=== PATIENT | male | born 1960 | race African-American/Black ===

== ENCOUNTER 2018-07-27 12:30 | Inpatient (IN) | payer MEDICARE, MEDICAID ==
[~2018-07-27] VITALS: Ht 180.3 cm; Wt 84.4 kg
[2018-07-27 14:47] LABS: CHLORIDE 99 mEq/L (98-107)
[2018-07-27] MEDS ORDERED: CEFTRIAXONE 1 G PREMIX 50 ML IV ONE (16:00)
[2018-07-27] MEDS ORDERED: AZITHROMYCIN 500 MG in DEXT 5% WATER 250 ML IV ONE (16:00)
[2018-07-27] MEDS ORDERED: ASPIRIN 325MG TABLET PO ONE (16:00)
[2018-07-27 17:01] LABS: BASOPHILS % 0.5 % (0.0-2.0); EOSINOPHILS % 0.6 % (0.0-5.0); HEMATOCRIT. 45.5 % (42.0-52.0); HEMOGLOBIN. 14.9 g/dL (14.0-18.0); LYMPHOCYTES % 37.1 % (20.0-50.0); MEAN CORPUSCULAR HEMOGLOBIN 31.2 pg (28.0-32.0); MEAN CORPUSCULAR VOLUME 95.4 fL (80.0-94.0); MEAN PLATELET VOLUME 10.7 fl (7.4-10.4); NEUTROPHILS % 51.8 % (40.0-76.0); PLATELET 155 x1000/uL (130-400); RED BLOOD CELL COUNT 4.77 mill/uL (4.7-6.1); RED CELL DISTRIBUTION WIDTH 13.8 % (11.6-14.6)
[2018-07-27 17:07] LABS: INR 1.3; PROTHROMBIN TIME 13.5 sec (9.1-11.1)
[2018-07-27] MEDS ORDERED: ASPIRIN 325MG TABLET GT ONE (18:00)
[2018-07-27 21:50] VITALS: BP 148/113
[2018-07-27 22:15] VITALS: BP 148/113
[2018-07-27] MEDS ORDERED: DEXTROSE 50% WATER 50ML SYRINGE IV PRN (22:30)
[2018-07-27] MEDS ORDERED: DULO20CA17 GT (23:49)
[2018-07-27] MEDS ORDERED: HYDR25TA GT (23:49)
[2018-07-27] MEDS ORDERED: IPRA3AMP31 IH (23:59)
[2018-07-27] MEDS ORDERED: CHOL100036 GT (23:59)
[2018-07-27] MEDS ORDERED: METO-539 GT (23:59)
[2018-07-27] MEDS ORDERED: HYDR-4134 GT (23:59)
[2018-07-27] MEDS ORDERED: LEVE500T78 GT (23:59)
[2018-07-27] MEDS ORDERED: OMEP20CA10 GT (23:59)
[2018-07-27] MEDS ORDERED: RISP0.5T19 GT (23:59)
[2018-07-27] MEDS ORDERED: LISI10TA5 GT (23:59)
[2018-07-28] VITALS: BP 147/85
[2018-07-28] MEDS ORDERED: IPRATROPIUM/ALBUTEROL 0.5-3(2.5)MG/3ML NEB HHN SCH
[2018-07-28 00:02] LABS: CHLORIDE 101 mEq/L (98-107)
[2018-07-28 00:07] LABS: BASOPHILS % 0.5 % (0.0-2.0); EOSINOPHILS % 0.8 % (0.0-5.0); HEMATOCRIT. 41.1 % (42.0-52.0); HEMOGLOBIN. 13.6 g/dL (14.0-18.0); LYMPHOCYTES % 46.6 % (20.0-50.0); MEAN CORPUSCULAR HEMOGLOBIN 30.7 pg (28.0-32.0); MEAN CORPUSCULAR VOLUME 92.7 fL (80.0-94.0); MEAN PLATELET VOLUME 10.4 fl (7.4-10.4); MONOCYTES % 10.1 % (2.0-8.0); PLATELET 160 x1000/uL (130-400); RED BLOOD CELL COUNT 4.43 mill/uL (4.7-6.1); RED CELL DISTRIBUTION WIDTH 13.9 % (11.6-14.6)
[2018-07-28 00:10] LABS: CREATINE KINASE 220 IU/L (39-308)
[2018-07-28 00:13] LABS: CREATINE KINASE MB FRACTION < 1.0 ng/mL (0.5-3.6)
[2018-07-28] MEDS: BLOOD SUGAR DIAGNOSTIC STRIP TEST SCH ×5 (00:47→23:22)
[2018-07-28 04:00] VITALS: BP 114/73
[2018-07-28] MEDS: INSULIN LISPRO 100 UNITS/ML SUBCUT SCH ×5 (06:00→23:22)
[2018-07-28 07:56] LABS: LDL CHOLESTEROL 69 mg/dL (5-100)
[2018-07-28 07:58] LABS: CREATINE KINASE 182 IU/L (39-308)
[2018-07-28 07:59] LABS: HDL CHOLESTEROL 35 mg/dL (40-59)
[2018-07-28 08:00] VITALS: BP 115/75
[2018-07-28 08:00] LABS: CREATINE KINASE MB FRACTION < 1.0 ng/mL (0.5-3.6)
[2018-07-28] MEDS ORDERED: INSULIN LISPRO 100 UNITS/ML SUBCUT SCH (08:20)
[2018-07-28] MEDS: ENOXAPARIN 40MG/0.4ML SYR SUBCUT SCH (08:25)
[2018-07-28 09:28] LABS: BG CARBOXYHEMOGLOBIN 0.6 % (0.5-1.5); BG DEOXYHEMOGLOBIN 4.4 % (0.0-5.0); BG FRACTION INSPIRED OXYGEN 28; BG HCO3 ACT 34.7 mmol/L (22.0-26.0); BG METHEMOGLOBIN 0.4 % (0.0-1.5); BG OXYGEN SATURATION 95.6 % (92.0-98.5); BG OXYHEMOGLOBIN 94.6 % (94.0-97.0); BG PCO2 52.4 mmHg (35.0-45.0); BG PH 7.439 (7.350-7.450); BG PO2 80.7 mmHg (75.0-100.0); BG SAMPLE SITE RIGHT RADIAL; BG TOTAL HEMOGLOBIN 12.8 g/dL (12.0-18.0); BG VENT MODE NASAL CANNULA
[2018-07-28] MEDS: LANSOPRAZOLE 15MG DR CAPSULE GT SCH (10:00)
[2018-07-28] MEDS: RISPERIDONE 0.5MG TABLET GT SCH ×2 (10:57→20:52)
[2018-07-28] MEDS: CHOLECALCIFEROL (D3) 1000 UNIT TABLET PO SCH (10:57)
[2018-07-28] MEDS: DULOXETINE HCL 20MG DR CAPSULE PO SCH (10:57)
[2018-07-28] MEDS: POTASSIUM CHLORIDE 20MEQ/PACKET GT SCH (10:57)
[2018-07-28] MEDS: LEVETIRACETAM 500MG TABLET PO SCH ×2 (10:58→20:51)
[2018-07-28] MEDS: LISINOPRIL 10MG TABLET PO SCH (10:58)
[2018-07-28] MEDS: METOPROLOL TARTRATE 25MG TABLET PO SCH ×2 (10:58→20:52)
[2018-07-28] MEDS: HYDROCHLOROTHIAZIDE 25MG TABLET GT SCH (10:58)
[2018-07-28 12:00] VITALS: BP 118/69
[2018-07-28] MEDS: IPRATROPIUM/ALBUTEROL 0.5-3(2.5)MG/3ML NEB NEB SCH ×3 (12:25→19:45)
[2018-07-28 16:00] VITALS: BP 118/76
[2018-07-28 16:47] LABS: CREATINE KINASE 154 IU/L (39-308)
[2018-07-28 16:48] LABS: CREATINE KINASE MB FRACTION < 1.0 ng/mL (0.5-3.6)
[2018-07-28 17:03] LABS: HEPATITIS B SURFACE ANTIGEN NEGATIVE
[2018-07-28 18:18] LABS: HEPATITIS A AB IGM NEGATIVE (NEGATIVE)
[2018-07-28 19:25] LABS: CLARITY URINE CLOUDY (CLEAR); COLOR URINE DARK YELLOW (YELLOW); KETONES URINE NEGATIVE (NEGATIVE); LEUKOCYTE ESTERASE URINE NEGATIVE (NEGATIVE); NITRITE URINE NEGATIVE (NEGATIVE); OCCULT BLOOD URINE NEGATIVE (NEGATIVE); PH URINE 7.5 (4.5-8.0); PROTEIN URINE NEGATIVE (NEGATIVE); SPECIFIC GRAVITY URINE 1.019 (1.005-1.030)
[2018-07-28 20:00] VITALS: BP 137/86
[2018-07-28] MEDS ORDERED: MONTELUKAST SODIUM 10MG TABLET GT SCH (21:00)
[2018-07-28] MEDS ORDERED: ATORVASTATIN CALCIUM 10MG TABLET PO SCH (21:00)
[2018-07-29] VITALS: BP 120/85
[2018-07-29] MEDS: IPRATROPIUM/ALBUTEROL 0.5-3(2.5)MG/3ML NEB NEB SCH ×5 (00:58→14:57)
[2018-07-29 04:00] VITALS: BP 122/86
[2018-07-29] MEDS: BLOOD SUGAR DIAGNOSTIC STRIP TEST SCH ×3 (06:00→17:06)
[2018-07-29] MEDS: INSULIN LISPRO 100 UNITS/ML SUBCUT SCH ×3 (06:25→17:06)
[2018-07-29 08:00] VITALS: BP 138/73
[2018-07-29] MEDS: HYDROCHLOROTHIAZIDE 25MG TABLET GT SCH (09:20)
[2018-07-29] MEDS: LISINOPRIL 10MG TABLET PO SCH (09:20)
[2018-07-29] MEDS: POTASSIUM CHLORIDE 20MEQ/PACKET GT SCH (09:20)
[2018-07-29] MEDS: LEVETIRACETAM 500MG TABLET PO SCH (09:20)
[2018-07-29] MEDS: CHOLECALCIFEROL (D3) 1000 UNIT TABLET PO SCH (09:20)
[2018-07-29] MEDS: ENOXAPARIN 40MG/0.4ML SYR SUBCUT SCH (09:20)
[2018-07-29] MEDS: DULOXETINE HCL 20MG DR CAPSULE PO SCH (09:21)
[2018-07-29] MEDS: LANSOPRAZOLE 15MG DR CAPSULE GT SCH (09:21)
[2018-07-29] MEDS: METOPROLOL TARTRATE 25MG TABLET PO SCH (09:21)
[2018-07-29] MEDS: RISPERIDONE 0.5MG TABLET GT SCH (09:21)
[2018-07-29 11:05] LABS: BASOPHILS % 0.9 % (0.0-2.0); EOSINOPHILS % 0.8 % (0.0-5.0); HEMATOCRIT. 38.6 % (42.0-52.0); MEAN CORPUSCULAR HEMOGLOBIN 31.3 pg (28.0-32.0); MEAN CORPUSCULAR VOLUME 93.3 fL (80.0-94.0); MEAN PLATELET VOLUME 11.1 fl (7.4-10.4); NEUTROPHILS % 44.3 % (40.0-76.0); PLATELET 141 x1000/uL (130-400); RED BLOOD CELL COUNT 4.14 mill/uL (4.7-6.1); RED CELL DISTRIBUTION WIDTH 13.8 % (11.6-14.6)
[2018-07-29 12:00] VITALS: BP 133/75
[2018-07-29 12:04] LABS: CHLORIDE 104 mEq/L (98-107)
[2018-07-29 13:46] LABS: BG BASE EXCESS 7.5 mmol/L (-2.0-2.0); BG CARBOXYHEMOGLOBIN 0.4 % (0.5-1.5); BG DEOXYHEMOGLOBIN 3.6 % (0.0-5.0); BG FRACTION INSPIRED OXYGEN 28; BG HCO3 ACT 32.8 mmol/L (22.0-26.0); BG METHEMOGLOBIN 0.3 % (0.0-1.5); BG OXYGEN SATURATION 96.4 % (92.0-98.5); BG OXYHEMOGLOBIN 95.7 % (94.0-97.0); BG PCO2 49.1 mmHg (35.0-45.0); BG PH 7.442 (7.350-7.450); BG PO2 88.6 mmHg (75.0-100.0); BG SAMPLE SITE LEFT RADIAL; BG TOTAL HEMOGLOBIN 12.2 g/dL (12.0-18.0); BG VENT MODE NASAL CANNULA
[2018-07-29 15:57] VITALS: BP 133/75
[2018-07-29 16:00] VITALS: BP 130/89
== END 2018-07-29 18:48 | DRG 194 ==
LOC: ER 12:30 → EDBD 12:30 → 8WST 16:06 → EDBEDREQ 16:10 → ENRESERV 20:16 → 8WST 22:25
PROVIDERS: ADMIT Internal Medicine Geriatric Medicine; ATTEND Internal Medicine Geriatric Medicine
DX: J18.1 Lobar pneumonia, unspecified organism (principal); G81.91 Hemiplegia, unspecified affecting right dominant side; E44.0 Moderate protein-calorie malnutrition; R07.89 Other chest pain; E87.6 Hypokalemia; E11.9 Type 2 diabetes mellitus without complications; I10 Essential (primary) hypertension; Z68.25 Body mass index [BMI] 25.0-25.9, adult; E78.00 Pure hypercholesterolemia, unspecified; G40.909 Epilepsy, unspecified, not intractable, without status epilepticus; I51.7 Cardiomegaly; R74.0 Nonspecific elevation of levels of transaminase and lactic acid dehydrogenase [LDH]; R09.02 Hypoxemia; Z74.01 Bed confinement status; Z86.14 Personal history of Methicillin resistant Staphylococcus aureus infection; Z87.440 Personal history of urinary (tract) infections; I69.320 Aphasia following cerebral infarction; Z93.1 Gastrostomy status; Z86.73 Personal history of transient ischemic attack (TIA), and cerebral infarction without residual deficits
CPT/HCPCS: 36415; 36600; 71045; 80048; 80061; 80076; 82375; 82550; 82553; 82805; 82962; 83036; 83605; 83880; 84484; 86705; 86709; 86803; 87340; 93005; 93306; 93970; 96365; 96366; 96368; 99285; J0456; J0696; J1650; J1815; J7060; J7620